=== PATIENT | male | born 1960 | race Caucasian/White ===

== ENCOUNTER 2017-06-16 20:15 | Emergency (ER) | payer SELFPAY ==
[2017-06-16] MEDS ORDERED: KETOROLAC TROMETHAMINE 30 MG/ML VIAL IM ONE (20:41)
[2017-06-16] MEDS ORDERED: ACETAMINOPHEN 500 MG TABLET PO ONE (20:41)
--- NOTE | 2017-06-16 20:49 | ERNOTE ---
Back Pain ER HPI Date of Service: 06/16/17 Presenting Symptoms: injury/pain to back Time Seen by Provider: 06/16/17 20:40 Source: patient Exam Limitations: no limitations Immunizations: IMMUNIZATION HX Immunizations Up to Date Yes History of Influenza Vaccine Yes Allergies/Adverse Reactions: Allergies No Known Allergies Allergy (Unverified 06/16/17 20:23) Home Medications: HOME MEDICATIONS Cyclobenzaprine HCl [Flexeril] 10 mg PO TID PRN #30 tab 06/16/17 [Last Taken Unknown] Naproxen [Naprosyn] 500 mg PO BID PRN #20 tablet 06/16/17 [Last Taken Unknown] Narrative: 56 year old that has a six week history of upper back pain that is sharp and progressively worsened. The pain is located centrally at the thoracic area. It radiates to the right chest and axilla. No reported trauma. Stretching increases the pain and has not had similar pain before. The pain is severe at this time. Denies any fevers, chills, shortness of breath, previous lung or cardiac disease history. Discontinued smoking 5 years ago, but smoked for about 20 years. His father of lung cancer. Drives trucks for a living. Date (Duration): 06/16/17 Timing: Reports: constant Quality/Severity: Reports: severe Location of pain: Reports: upper back Activities at Onset: Reports: none Recent Injury?: Reports: no Possible Precipitating Factor: Reports: none Modifying Factors - (Improves): Reports: other Modifying Factors - (Worsens): Reports: other - stretching Review of Systems - Review of Systems Constitutional: Present: no symptoms reported EYE: Present: no symptoms reported ENT: Present: no symptoms reported Respiratory: Present: no symptoms reported Cardiology: Present: no symptoms reported Gastrointestinal/Abdominal: Present: no symptoms reported Genitourinary: Present: no symptoms reported Musculoskeletal: Present: See HPI Skin: Present: no symptoms reported Neurological: Present: no symptoms reported Endocrine: Present: no symptoms reported Hematologic/Lymphatic: Present: no symptoms reported Psych: Present: no symptoms reported - Patient's Past Medical History Patient History - Medical: No pertinent hx Patient History - Cardiac/Respiratory: Hypertension Patient History - Cancer: No Hx of Cancer Patient History - Surgical Procedures: No surgical history Patient History - Other: None - Social History Abuse History: No History of abuse Psych History: No pertinent hx Smoking Status: Former smoker Have you smoked in the past 12 months: No Do you dip or chew tobacco: No Alcohol Use: none Drug Use: none - Immunizations Immunizations Up to Date: Yes History of Influenza Vaccine: Yes Physical Exam - Physical Exam General Appearance: Present: no apparent distress Head Exam: Present: normal inspection Eye Exam: Normal inspection: bilateral, PERRL: bilateral, EOMI: bilateral Ears, Nose, Throat: Present: normal ENT inspection Neck: Present: normal inspection Respiratory: Present: no respiratory distress Cardiovascular/Chest: Present: regular rate, rhythm Gastrointestinal/Abdominal: Present: nontender, nondistended, soft Back Exam: Present: normal inspection, other - no tenderess or rashes Extremity Exam: Present: normal inspection Neurological Exam: Present: alert, oriented Skin Exam: Present: normal color ED Progress - Results and Orders Patient's Lab Results:: I have reviewed the patient's lab results. - Vital Signs Patient's Vital Signs:: I have reviewed the patient's vital signs. Vital Signs: Vital Signs 06/16/17 20:20 Temperature 35.7 C L Pulse Rate 93 Respiratory 16 Rate Blood Pressure 182/108 O2 Sat by Pulse 97 Oximetry - EKG EKG: NSR EKG read: Interp. by me EKG Comments: rightward axis, rate 84 - CT/Ultrasound CT/Ultrasound Narrative: No PE or aneurysm. - Progress/Reassessment Chief Complaint: Back Pain Progress:: Unchanged Progress Note-Subjective: 06/16/17 23:22 Given Ketorlac 30 mg IM and Tylenol 1 gram po. No change in the pain pattern or intensity. The patient was offered IM medication and instructed that he would have to wait since he did not have a driver starting gate, he then declined the pain medication. He has accepted to Tramadol tablets to be use later after discharge. 06/16/17 23:26 Departure Clinical Impression: Acute upper back pain - Departure Disposition: Home self-care Condition: Fair Instructions: Thoracic Strain, [id number] Print Language: Tunisian Additional Instructions: Return to the ED as needed. See your physician in 1-2 weeks. Prescriptions: Cyclobenzaprine HCl [Flexeril] 10 mg PO TID PRN #30 tab PRN Reason: MUSCLE SPASMS Naproxen [Naprosyn] 500 mg PO BID PRN #20 tablet PRN Reason: Pain
[2017-06-16] MEDS ORDERED: KETOROLAC TROMETHAMINE 30 MG/ML VIAL ONE (20:50)
[2017-06-16 21:16] LABS: ALT 52 U/L (19-67); AST 25 U/L (0-48); Albumin * 4.2 gm/dl (3.4-5.0); Alkaline Phosphatase * 120 U/L (50-170); Anion Gap 14.1 mmol/L (6.8-13.8); Bilirubin, Total 0.8 mg/dL (0.0-1.1); Blood Urea Nitrogen 20 mg/dL (6-23); Ca. Corrected For Albumin 8.4 mg/dL (8.4-10.2); Calcium * 8.9 mg/dL (7.9-10.9); Carbon Dioxide 26.7 mmol/L (24-32.6); Chloride 102 mmol/L (97-106); Glucose * 118 mg/dL (70-110); Potassium 3.8 mmol/L (3.4-4.6); Sodium 139 mmol/L (132-142); Total Protein 7.7 gm/dL (6.2-8.2)
[2017-06-16 21:19] LABS: Troponin I Less than 0.017 ng/ml (0.00-0.10)
[2017-06-16 22:03] LABS: Hematocrit 45.9 % (42.0-52.0); Hemoglobin 16.3 gm/dL (13.5-18.0); Mean Cell Volume 89.5 fl (78-100); Mean Corpuscular Hemoglobin 31.8 pg (27-31); Mean Corpuscular Hgb Conc 35.5 g/dl (32-36); Neutrophil # 4.4 K/mm3 (1.3-6.0); Neutrophil % 65.1 % (42-75.0); Platelet Count 339 K/mm3 (150-450); Red Blood Count 5.13 M/mm3 (4.7-6.0); Red Cell Distribution Width 12.4 % (11.5-14.0); White Blood Count 6.8 K/mm3 (4.0-10.5)
[2017-06-16 23:14] VITALS: BP 164/102
[2017-06-16] MEDS ORDERED: PROMETHAZINE HCL 25 MG/ML AMPUL IM ONE (23:16)
[2017-06-16] MEDS ORDERED: HYDROmorphone HCL 1 MG/ML DISP.SYRIN IM ONE (23:16)
[2017-06-16] MEDS ORDERED: traMADol HCL 50 MG TABLET PO ONE (23:27)
[2017-06-16] MEDS ORDERED: traMADol HCL 50 MG TABLET ONE (23:29)
== END 2017-06-16 23:35 | disposition home or self-care (01) ==
LOC: ER 20:15
DX: M54.6 Pain in thoracic spine (principal); Z87.891 Personal history of nicotine dependence